=== PATIENT | female | born 1950 | race Caucasian/White ===

== ENCOUNTER → 2017-03-04 | Outpatient (CLI) | payer MEDICARE ==
[~2017-03-04] MED LIST: CANA300T PO; DIGO125T17 PO; INSU300I SQ; LATA2.5D7 BOTH EYES; LEVO100T82 PO; LOSA100T44 PO; METF750T2 PO; SUCR1TAB PO; TRAM50TA4 PO; [UNRECOGNIZED DRUG - CODE] PO
== END ==
LOC: NWCC 15:00
PROVIDERS: ATTEND Internal Medicine
DX: E11.621 Type 2 diabetes mellitus with foot ulcer (principal); L97.412 Non-pressure chronic ulcer of right heel and midfoot with fat layer exposed; L97.522 Non-pressure chronic ulcer of other part of left foot with fat layer exposed; Z86.73 Personal history of transient ischemic attack (TIA), and cerebral infarction without residual deficits; I49.9 Cardiac arrhythmia, unspecified; I10 Essential (primary) hypertension; J45.909 Unspecified asthma, uncomplicated; J44.9 Chronic obstructive pulmonary disease, unspecified; E03.9 Hypothyroidism, unspecified; E11.40 Type 2 diabetes mellitus with diabetic neuropathy, unspecified
CPT/HCPCS: 97597; A6021; A6209; A6212; G0463

== ENCOUNTER 2018-02-17 14:39 | Inpatient (IN) ==
--- NOTE | 2018-02-17 14:53 | Emergency Department Report ---
General Adult HPI - General Stated complaint: Lightheaded, blurry vision, nauseated Time Seen by Provider: 02/17/18 14:52 - Related Data Home Medications Medication Instructions Recorded Confirmed Levothyroxine Sodium [Levoxyl] 100 mcg PO ACB #0 11/05/09 02/17/18 Metformin XR [Glucophage Xr] 750 mg PO BID #0 03/22/16 02/17/18 Insulin Degludec *U100* [Tresiba 110 mg SQ HS 05/03/17 02/17/18 Flextouch U-100 Pen] Naproxen Sodium [Aleve] 220 mg PO BIDWM PRN 05/03/17 02/17/18 [place]-3 Fatty Acids/Fish Oil [Fish 1 cap PO BID 05/03/17 02/17/18 Oil 1,200 mg Softgel] Digoxin [Digoxin] 125 mcg PO DAILY 02/17/18 02/17/18 Losartan [Cozaar] 100 mg PO DAILY 02/17/18 02/17/18 Zinc Gluconate [Zinc] 50 mg PO BID 02/17/18 02/17/18 Allergies Allergy/AdvReac Type Severity Reaction Status Date / Time codeine Allergy Intermediate HIVES Verified 02/17/18 15:20 Iodinated Contrast- Oral and Allergy Intermediate HIVES Verified 02/17/18 15:20 IV Dye Penicillins Allergy Intermediate HIVES Verified 02/17/18 15:20 quinine Allergy Intermediate HIVES Verified 02/17/18 15:20 Sulfa (Sulfonamide Allergy Intermediate HIVES Verified 02/17/18 15:20 Antibiotics) morphine Allergy Mild rash Verified 02/17/18 15:20 acetaminophen [From Lortab] Allergy Unknown Verified 02/17/18 15:20 aspirin Allergy Unknown HAS HAD OD Verified 02/17/18 15:20 OF IT clarithromycin Allergy Unknown Verified 02/17/18 15:20 epinephrine Allergy Unknown HIVES Verified 02/17/18 15:20 oxaprozin Allergy Unknown Verified 02/17/18 15:20 hydrocodone AdvReac Mild Nausea and Verified 02/17/18 15:20 Vomiting ketoprofen AdvReac Mild N/V Verified 02/17/18 15:20 PFSH Patient Stated Medical History Cerebrovascular Accident Yes: >10 YEARS AGO Valvular Heart Disease Yes Asthma Yes Bronchitis Yes Diabetes Mellitus Type 2 Yes Depression Yes - Social History Smoking status: Never smoker Substance use type: does not use Alcohol intake frequency: does not drink Course Vital Signs Temperature 97.6 F 02/17/18 14:39 Pulse Rate 93 02/17/18 14:39 Respiratory Rate 13 02/17/18 14:39 Blood Pressure 117/57 02/17/18 14:39 Pulse Oximetry 94 02/17/18 14:39 Temperature 97.6 F 02/17/18 14:39 Pulse Rate 93 02/17/18 14:39 Respiratory Rate 13 02/17/18 14:39 Blood Pressure 117/57 02/17/18 14:39 Pulse Oximetry 94 02/17/18 14:39 Medical Decision Making - Lab Data Result diagrams: 02/17/18 15:11 02/17/18 15:11 Lab Results 02/17/18 02/17/18 02/17/18 Range/Units 14:48 15:11 15:11 WBC 11.2 H (4.5-11.0) T/MM3 RBC 4.24 (4.00-5.20) M/MM3 Hgb 13.9 (12-16) GM/DL Hct 41.5 (36-46) % MCV 97.9 (80-100) UM3 MCH 32.8 (26-34) UUG MCHC 33.5 (31-37) GM/DL RDW Std Deviation 48.5 (36.9-50.2) FL Plt Count 221 (130-400) T/MM3 MPV 11.1 (9.4-12.4) UM3 Immature Gran % (Auto) 0.4 (0.0-0.5) % Neut % (Auto) 59.9 (33-66) % Lymph % (Auto) 30.2 (23-45) % [place] % (Auto) 7.5 (0-9.0) % Eos % (Auto) 1.5 (0-4) % Baso % (Auto) 0.5 (0-2) % Neut # (Auto) 6.7 (1.8-7.7) T/MM3 Lymph # (Auto) 3.4 (1-4.8) T/MM3 [place] # (Auto) 0.8 (0-0.8) T/MM3 Eos # (Auto) 0.2 (0-0.5) T/MM3 Baso # (Auto) 0.1 (0-0.2) T/MM3 Abs Immat Gran (auto) 0.04 H (0.00-0.03) T/MM3 Turbidity < 20 (0-20) Sodium 142 (134-144) MEQ/L Potassium 5.9 H (3.6-5) MEQ/L Chloride 106 (98-107) MEQ/L Carbon Dioxide 21 L (22-30) MEQ/L Anion Gap 15 (5-15) meq/L BUN 36.0 H (7-17) MG/DL Creatinine 1.6 H (0.7-1.2) mg/dL GFR Calculation 32 BUN/Creatinine Ratio 23 (6-26) RATIO Glucose 165 H (65-110) MG/DL Glucometer 156 (65-110) mg/dL Calculated Osmolality 285 H (261-280) MOSM/KG Calcium 10.2 (8.4-10.2) MG/DL Total Bilirubin 0.60 (0.20-1.30) MG/DL Icterus Index < 2 (0-7) AST 22 (14-36) U/L ALT 32 (1-35) U/L Alkaline Phosphatase 82 (38-126) U/L Troponin I < 0.012 (0-0.12) ng/ml Total Protein 7.9 (6.3-8.2) g/dL Albumin 4.9 (3.5-5.0) g/dL Globulin 3.0 (2.4-3.6) G/DL Albumin/Globulin Ratio 1.6 (1.1-2.2) RATIO Lipase 159 (23-300) U/L Specimen Hemolysis < 15 (0-25) Disposition Clinical Impression: Hyperkalemia, Volume depletion Disposition: 02 To OBS [facility] Condition: Stable Prescriptions: No Action Levothyroxine Sodium [Levoxyl] 100 mcg PO ACB #0 [place]-3 Fatty Acids/Fish Oil [Fish Oil 1,200 mg Softgel] 1 cap PO BID Naproxen Sodium [Aleve] 220 mg PO BIDWM PRN PRN Reason: Pain Digoxin [Digoxin] 125 mcg PO DAILY Metformin XR [Glucophage Xr] 750 mg PO BID #0 Insulin Degludec *U100* [Tresiba Flextouch U-100 Pen] 110 mg SQ HS Zinc Gluconate [Zinc] 50 mg PO BID Losartan [Cozaar] 100 mg PO DAILY Referrals: Nedich,Calixto L, DO [Primary Care Provider] - - Seen By: physician
[2018-02-17] MEDS ORDERED: ONDANSETRON 4 MG/2 ML INJECTION IVP ONE (15:17)
[2018-02-17] MEDS ORDERED: NS 1,000 ML IV ONE (15:17)
[2018-02-17] MEDS ORDERED: MECLIZINE 25 MG TABLET PO ONE (15:19)
--- NOTE | 2018-02-17 15:21 | CT Scan Report ---
EXAM: CT head/brain wo con HISTORY: history of stroke, blurry vision nausea headache COMPARISON: Comparison is made with the prior examination dated 09/10/2014. Contiguous axial images of the brain without intravenous contrast were performed. The current CT scan was performed using radiation dose-reduction techniques. The cortical sulci are well-maintained. The ventricles are midline and appear normal in size and configuration demonstrating no evidence of mass effect or midline shift. Normal gomez-white matter differentiation is seen and there is no evidence of acute intracranial hemorrhage or acute transcortical infarct. There is mild periventricular white matter hypoattenuation likely reflecting chronic microvascular changes. No extra-axial masses or fluid collections are identified. The visualized bony calvarium appears intact and the paranasal sinuses are clear. IMPRESSION: 1. No CT evidence of acute intracranial process. 2. Mild periventricular white matter chronic microvascular changes.. .
[2018-02-17] MEDS ORDERED: KETOROLAC 30 MG/ML INJECTION IVP ONE (15:22)
[2018-02-17] MEDS ORDERED: CALCIUM GLUCONATE 4.65 MEQ in NS 50 ML IV ONE (15:39)
[2018-02-17] MEDS ORDERED: SODIUM POLYSTYRENE SULFONATE 15 GM/60 ML BOTTLE PO ONE (15:40)
[2018-02-17] MEDS ORDERED: ORPHENADRINE 60 MG/2 ML INJECTION IVP ONE (16:03)
[2018-02-17] MEDS: 1/2 NS 1,000 ML IV SCH (16:45)
[2018-02-17] MEDS ORDERED: DEXTROSE 50% SYRINGE 50ml (1 AMP) IVP PRN (17:19)
[2018-02-17] MEDS ORDERED: GLUCOSE ORAL GEL 40% 37.5gm PO PRN (17:19)
[2018-02-17] MEDS ORDERED: ONDANSETRON 4 MG/2 ML INJECTION IVP PRN (17:19)
[2018-02-17 17:25] VITALS: BMI 30.4
[2018-02-17] MEDS ORDERED: ACETAMINOPHEN 500 MG TABLET PO PRN (17:26)
[2018-02-17] MEDS ORDERED: MECLIZINE 25 MG TABLET PO PRN (17:27)
--- NOTE | 2018-02-17 18:32 | History & Physical Report ---
History of Present Illness Date: 02/17/18 HPI: Ling Ayala is a 67 year old who had been feeling fine all day until suddenly this afternoon (02/17/18), while leaving a clinic with her son, she began to feel lightheaded, weak, near-syncopal, and nauseated, and felt like someone was stabbing her in the back b/c of severe spasms up and down her back and into her right leg (which were much worse than normal). Since then she developed spasms on the right side of her neck and has an occipital headache. She denies any new medications or changes in medications. She's had mild abdominal pain and has to watch what she eats b/c of hx of bowel resections but denies vomiting or bowel changes. She has been eating and drinking without any problems and usually drinks several glasses of water per day, though didn't drink as much as usual today. She denies any burning on urination, retention, frequency, or discoloration. She did note that she hasn't been urinating as frequently today. She denies chest pain or palpitations, SOA, or cough. She had a minor "flu-like " illness with runny nose and sore throat in November but that has resolved. She has b/l hand/feet diabetic neuropathy. She denies any trauma or falls lately. She has diabetes and her typical blood sugars are 150 or less. She presented to [facility] for evaluation of her near-syncope and pain. Her vitals were stable on arrival. WBC was minimally elevated at 11.2. Potassium was high at 5.9; and BUN and creatinine were also elevated at 36 and 1.6. Her baseline creatinine a year ago was 1.0. Digoxin level was 1.1. She was given Kayexalate 15 gm, 1L of NS, and calcium gluconate for hyperkalemia. She was also given meclizine for dizziness and Norflex for muscle spasms (which was ineffective). Dr. Alfonso was then contacted and Ling was admitted to observation status. Review of Systems All systems PM: 10-point ROS was reviewed, no additional remarkable complaints except - Constitutional Constitutional: Present: headache(s). Absent: fever(s), weight gain, [facility]: Present: requires corrective lenses. Absent: blurry vision, change in vision Balance: Present: as per HPI Nose: Absent: obstruction Mouth/Throat: Absent: sore throat - Cardiovascular Cardiovascular: Absent: chest pain, palpitations, syncope Vascular: Present: Raynaud's. Absent: pedal edema - Respiratory Respiratory: Absent: cough, dyspnea, dyspnea on exertion - Gastrointestinal Gastrointestinal: Present: abdominal pain, nausea. Absent: constipation, diarrhea, vomiting - Genitourinary Genitourinary: Absent: dysuria, urinary frequency, urinary hesitancy, urinary urgency - Musculoskeletal Musculoskeletal: Present: back pain, neck pain - Integumentary/Breasts Integumentary: Absent: rash, wounds - Neurological Neurological: Present: dizziness, headache(s), numbness (diabetic neuropathy). Absent: abnormal gait, confusion, frequent falls - Psychiatric Psychiatric: Present: depression. Absent: abnormal sleep pattern - Endocrine Endocrine: Absent: palpitations - Hematologic/Lymphatic Hematologic/Lymphatic: Present: easy bleeding, easy bruising Past Medical History Medical History Updates: Type 2 DM with peripheral neuropathy. Hypothyroidism. Stroke without residual deficits in 1996. Raynoud's. PAF that was converted to NSR with cardioversion. GERD/Peptic ulcer disease. Obesity. Osteoarthritis Surgical History: Neck surgery x2. Bowel resection x2 - first one resulted from a large hernia; second bowel resection came as she was recovering from the first sx after hernia "ruptured". Appendectomy. T&A. TAHBSO. Back surgery. Cholecystectomy by Dr. Davila in 2003. Colonoscopy by Dr. Davila in 2003: polyp. EGD by Dr. Davila in 2007: normal. EGD by Dr. Espinal in 2010: gastritis and reflux. Heart cath by Dr. Murillo in 2010 which was normal. B/L total knee replacements, most recent being right in 2012. Relsease of Right IT band in 2013. ORIF left thumb/wrist 2014 Family History Updates: Mom at age 67. She had metastic melanoma. Father at age 82 of CHF. 3 sisters: 2 older, 1 younger. 2 older sisters are fairly healthy. Younger sister had thyroid cancer but is currently doing well. Son: HIV. Son: , psych problems, depression, drug abuse Family History: As Above - Social History Smoking status: Former smoker (quit in 1998) Packs per day: 0.25 Packs-years: 3 Substance use type: does not use Alcohol intake frequency: holidays/special occasions only Household members: other () Medications Home Medications Medication Instructions Recorded Confirmed Type Levothyroxine Sodium [Levoxyl] 100 mcg PO ACB #0 11/05/09 02/17/18 History Metformin XR [Glucophage Xr] 750 mg PO BID #0 03/22/16 02/17/18 History Insulin Degludec *U100* [Tresiba 110 mg SQ HS 05/03/17 02/17/18 History Flextouch U-100 Pen] Naproxen Sodium [Aleve] 220 mg PO BIDWM PRN 05/03/17 02/17/18 History [place]-3 Fatty Acids/Fish Oil [Fish 1 cap PO BID 05/03/17 02/17/18 History Oil 1,200 mg Softgel] Digoxin [Digoxin] 125 mcg PO DAILY 02/17/18 02/17/18 History Losartan [Cozaar] 100 mg PO DAILY 02/17/18 02/17/18 History Zinc Gluconate [Zinc] 50 mg PO BID 02/17/18 02/17/18 History Allergies Allergy/AdvReac Type Severity Reaction Status Date / Time codeine Allergy Intermediate HIVES Verified 02/17/18 15:20 Iodinated Contrast- Oral and Allergy Intermediate HIVES Verified 02/17/18 15:20 IV Dye Penicillins Allergy Intermediate HIVES Verified 02/17/18 15:20 quinine Allergy Intermediate HIVES Verified 02/17/18 15:20 Sulfa (Sulfonamide Allergy Intermediate HIVES Verified 02/17/18 15:20 Antibiotics) morphine Allergy Mild rash Verified 02/17/18 15:20 acetaminophen [From Lortab] Allergy Unknown Verified 02/17/18 15:20 aspirin Allergy Unknown HAS HAD OD Verified 02/17/18 15:20 OF IT clarithromycin Allergy Unknown Verified 02/17/18 15:20 epinephrine Allergy Unknown HIVES Verified 02/17/18 15:20 oxaprozin Allergy Unknown Verified 02/17/18 15:20 hydrocodone AdvReac Mild Nausea and Verified 02/17/18 15:20 Vomiting ketoprofen AdvReac Mild N/V Verified 02/17/18 15:20 Exam Vital Signs: Temperature 97.6 F 02/17/18 14:39 Pulse Rate 74 02/17/18 17:00 Respiratory Rate 21 02/17/18 17:00 Blood Pressure 149/70 H 02/17/18 17:00 Pulse Oximetry 97 02/17/18 17:00 Height/Weight/BMI: Height 1.68 m Weight 85.7 kg Body Mass Index 30.4 - Constitutional Present: no acute distress, well nourished, well developed - Routine HEENT Exam Head: Present: normocephalic Eye: Present: PERRL. Absent: conjunctival icterus, scleral injection ENT: Present: mucous membranes moist - Routine Neck Exam Present: supple. Absent: lymphadenopathy - Routine Respiratory Exam Present: CTA bilaterally - Routine Cardiovascular Exam Present: RRR, S1, S2 - Routine Abdominal Exam Present: soft, tenderness (with guarding to L periumbilical region), non distended. Absent: normoactive bowel sounds (hyperactive) - Routine Extremities Exam Present: no edema, pulses intact, normal capillary refill - Routine Back/Spine/Pelvis Exam Back/Spine: Present: muscle spasm (left trapezius). Absent: full ROM (even slight movement in bed reproduces spasms) - Routine Skin Exam Present: intact, dry, warm Comments: skin on left hand is cool - hx of Raynaud's - Routine Neurological Exam Present: alert, oriented X3, CN II-XII intact, sensory deficit (b/l feet d/t neuropathy), moving all extremities, normal speech Results - Labs CBC & Chem 7: 02/17/18 15:11 02/17/18 15:11 - ECG Data Tracing #1 I reviewed this ECG and interpreted as documented below: NSR, no ST elevation/depression, No T wave peaking - Imaging and Cardiology CT scan - head Status: image reviewed by me Additional comments: Date of Exam: 02/17/18 EXAM: CT head/brain wo con The cortical sulci are well-maintained. The ventricles are midline and appear normal in size and configuration demonstrating no evidence of mass effect or midline shift. Normal gomez-white matter differentiation is seen and there is no evidence of acute intracranial hemorrhage or acute transcortical infarct. There is mild periventricular white matter hypoattenuation likely reflecting chronic microvascular changes. No extra-axial masses or fluid collections are identified. The visualized bony calvarium appears intact and the paranasal sinuses are clear. IMPRESSION: 1. No CT evidence of acute intracranial process. 2. Mild periventricular white matter chronic microvascular changes.. Assessment and Plan Assessment and Plan: ASSESSMENT Hyperkalemia POA IFRAH POA Mild leukocytosis POA Type 2 DM with peripheral neuropathy Hypothyroidism Stroke without residual deficits in 1996 Raynoud's PAF that was converted to NSR with cardioversion GERD/Peptic ulcer disease Obesity Osteoarthritis PLAN Admit, observation status. PCP: Dr. Tesfaye. Advanced care directives: Wishes to name son as DPOA per previous discussions with him: will facilitate that tomorrow. Full code Hyperkalemia (5.9) & IFRAH (1.6, baseline 1.0) Received calcium gluconate, Kayexelate, and 1L NS in ED Continue with 1/2 NS Hold metformin, Cozaar, Aleve Monitor on tele Recheck BMP in am Check UA and postvoid residual Lightheadedness IVF as above R/O infection Control pain: Tramadol and Norflex PRN If sx persist may consult PT DM2 Monitor blood sugars Adjust insulin as needed, SSI Leukocytosis UA pending Recheck in am DVT Prophylaxis: SCD's GI Prophylaxis: Protonix Resuscitation Status: Full Code - Physician Narrative Physician: Yaya Alfonso MD Narrative: Date: 02/17/18 Time: 1954 Have independently interviewed and examined pt. Chart reviewed. Case discussed with ED physician and my DRY BOSS. Care plan developed with my supervision; agree with above. Started feeling rough today-very weak, lightheaded, and having spasms/cramps to leg and back of head. In typical state of kristin until these symptoms onset. Eating and drinking well. Bowels stable. Breathing well. No recent injury to trauma. Evaluated in ED. Potassium elevated at 5.9 and creatinine increase to 1.6. Placed in OBS for IVF for treatment of hyperkalemia and elevated creatinine. Lungs: clear CV: regular AB: soft nt BS Present EXT: no edema MSE: awake alert Plan: OBS. IVF of 1/2NS. Hold Cozaar and NSAIDS. Zofran prn nausea. ICE/Heat/ Aspercreme prn neck pain. Monitor sugars. Monitor lab. Hospital Course Summary Disclaimer: The visit summary below is not to be considered part of the above Progress Note. Hospital Course: 02/17/18 Admit, observation status. PCP: Dr. Tesfaye. Advanced care directives: Wishes to name son as DPOA per previous discussions with him: will facilitate that tomorrow. Full code Hyperkalemia (5.9) & IFRAH (1.6, baseline 1.0) Received calcium gluconate, Kayexelate, and 1L NS in ED Continue with 1/2 NS Hold metformin, Cozaar, Aleve Monitor on tele Recheck BMP in am Check UA and postvoid residual Lightheadedness IVF as above R/O infection Control pain: Tramadol and Norflex PRN If sx persist may consult PT DM2 Monitor blood sugars Adjust insulin as needed, SSI Leukocytosis UA pending Recheck in am
[2018-02-17] MEDS: TRAMADOL 50 MG TABLET PO PRN (19:18)
[2018-02-17] MEDS: ORPHENADRINE SR 100 MG TABLET PO PRN (22:22)
[2018-02-18] MEDS: TRAMADOL 50 MG TABLET PO PRN ×4 (00:11→21:48)
[2018-02-18] MEDS ORDERED: KETOROLAC 15 MG/ML INJECTION IVP ONE (01:32)
[2018-02-18] MEDS: 1/2 NS 1,000 ML IV SCH ×3 (01:44→16:58)
[2018-02-18] MEDS: LEVOTHYROXINE 100 MCG PO SCH (06:26)
[2018-02-18] MEDS: DIGOXIN 125 MCG PO SCH (08:58)
[2018-02-18] MEDS ORDERED: FUROSEMIDE 40 MG/4 ML INJECTION IVP ONE (09:14)
[2018-02-18] MEDS: ORPHENADRINE SR 100 MG TABLET PO PRN (10:44)
--- NOTE | 2018-02-18 11:25 | Progress Note ---
- Date 02/18/18 Subjective: Ling is feeling miserable. She still has right neck spasms and back spasms. She was only able to sleep a few hours last night b/c of her spasms. She denies other c/o such as chest pain or dyspnea. Her abdomen isn't bothering her today. She denies nausea or vomiting but doesn't have much of an appetite this am. She and her son discussed advanced directives last night - she requests DNR and we will fill out DPOA form this afternoon. Declined PT eval. Objective Vital signs: Temperature 97.5 F 02/17/18 23:38 Pulse Rate 67 02/18/18 08:58 Respiratory Rate 18 02/18/18 07:00 Blood Pressure 138/70 02/18/18 07:00 Pulse Oximetry 93 02/18/18 07:00 Height/Weight/BMI: Height 1.68 m Weight 85.7 kg Body Mass Index 30.4 - Constitutional Present: mild distress, well nourished, well developed - Routine HEENT Exam Head: Present: normocephalic Eye: Present: PERRL. Absent: conjunctival icterus, scleral injection ENT: Present: oropharynx clear - Routine Respiratory Exam Present: CTA bilaterally - Routine Cardiovascular Exam Present: RRR, S1, S2 - Routine Abdominal Exam Present: soft, normoactive bowel sounds, non distended, non tender - Routine Extremities Exam Present: no edema, pulses intact - Routine Back/Spine/Pelvis Exam Back/Spine: Present: muscle spasm (right trapezius. Slight movement of arm/ torso causes pain.). Absent: full ROM - Routine Musculoskeletal Exam Musculoskeletal: Present: no clubbing or cyanosis - Routine Skin Exam Present: intact, dry, warm - Routine Neurological Exam Present: alert, oriented X3, normal speech - Routine Psychiatric Exam Present: normal affect, normal thought process, cooperative Results - Labs CBC & Chem 7: 02/18/18 04:25 02/18/18 14:27 Assessment and Plan Assessment and Plan: ASSESSMENT Hyperkalemia POA IFRAH POA - resolved Mild leukocytosis POA - resolved Type 2 DM with peripheral neuropathy Hypothyroidism Stroke without residual deficits in 1996 Raynoud's PAF that was converted to NSR with cardioversion GERD/Peptic ulcer disease Obesity Osteoarthritis PLAN Hyperkalemia (5.9) & IFRAH (1.6, baseline 1.0) K improved to 5.5 and cr 1.2 Continue with 1/2 NS & give Lasix 40 mg IV x1 Hold metformin, Cozaar, Aleve UA neg Postvoid residual - 82 ml Lightheadedness IVF as above R/O infection Control pain: Tramadol and Norflex PRN If sx persist may consult PT DM2 : Stable Muscle spasms : Norflex ineffective. Try low-dose Valium and heating pad. Discharge plan Possible home later today if K continues to improve DVT Prophylaxis: SCD's - Time spent with patient Time with patient PN: 25 minutes - Physician Narrative Physician: Yaya Alfonso MD Narrative: Date: 02/18/18 Time: 1534 Have independently interviewed and examined pt. Chart reviewed. Case discussed with CM and my [employer]. Care plan developed with my supervision; agree with above. Still having significant pain/spasm to neck and right shoulder. Hard to move right arm due to shoulder pain. Shoulder tender to touch. Legs feel weak and spastic. Hard to move around. Diazepam really did not help her pain/spasms. Heat and Aspercreme helping to ease pain, but has not resolved her symptoms. No ab pain or nausea; appetite feels decreased. Did have stool today. Urinating well - significant output post Lasix. Breathing well - not feeling SOA or congested. No pain with breathing. Lungs: clear bilaterally, no distress on RA. CV: regular AB: soft nt BS decreased MS: point tender to R shoulder-no swelling. Trapezium muscle feels tense. Lab: Recheck BMP this afternoon showing decrease of potassium to 5.1 with creatinine decreasing to 1.1. Plan: Consult with PT/OT to help with stretching modalities and ROM activities to help pain/spasm. Potassium/creatinine improving - continue to hold Cozaar. Will decrease IVF to 100 cc/hr. Improving from a physiological status ( Creatinine/Potassium) but patient not feeling functional status up to discharge. Will hold on discharge plans today. Continue supportive care. Hospital Course Summary Disclaimer: The visit summary below is not to be considered part of the above Progress Note. Hospital Course: 02/17/18 : Admit, observation status. PCP: Dr. Tesfaye. Hyperkalemia (5.9) & IFRAH (1.6, baseline 1.0) : Received calcium gluconate, Kayexelate, and 1L NS in ED. IVF: 1/2 NS. Hold metformin, Cozaar, Aleve. Monitor on tele Lightheadedness : IVF, control pain. DM2 : Monitor blood sugars. Adjust insulin as needed, SSI Leukocytosis : UA pending 02/18/18 Hyperkalemia/IFRAH : K improved to 5.5 and cr 1.2. Continue with 1/2 NS & give Lasix 40 mg IV x1. UA neg. Postvoid residual = 82 ml Leukocytosis : resolved Muscle spasms : Norflex ineffective. Try low-dose Valium and heating pad.
[2018-02-18] MEDS: DIAZEPAM 2 MG TABLET PO PRN (11:36)
[2018-02-18] MEDS: INSULIN DEGLUDEC U PO SCH ×2 (16:57→21:49)
[2018-02-18] MEDS: [UNRECOGNIZED DRUG - OTHER] PO SCH ×2 (16:57→21:49)
--- NOTE | 2018-02-18 19:00 | Palliative Care Report ---
History of Present Illness Date: 02/18/18 Current Medical Condition: Diagnoses: Type 2 DM with peripheral neuropathy Hypothyroidism Stroke without residual deficits in 1996 Raynaud's PAF that was converted to NSR with cardioversion GERD/Peptic ulcer disease Treatment: Despite medical and procedural management, her chronic illnesses continue to progress. She was hospitalized for an acute kidney injury and hyperkalemia on 09/26 which responded well to IV fluids and diuretics. Her son recently was seriously ill, and he completed his advanced care directives. This hospitalization has reminded her that she needs to consider her own advanced care directives given her progressive chronic conditions. Past Medical History Medical History Updates: Type 2 DM with peripheral neuropathy. Hypothyroidism. Stroke without residual deficits in 1996. Raynoud's. PAF that was converted to NSR with cardioversion. GERD/Peptic ulcer disease. Obesity. Osteoarthritis Surgical History: Neck surgery x2. Bowel resection x2 - first one resulted from a large hernia; second bowel resection came as she was recovering from the first sx after hernia "ruptured". Appendectomy. T&A. TAHBSO. Back surgery. Cholecystectomy by Dr. Davila in 2003. Colonoscopy by Dr. Davila in 2003: polyp. EGD by Dr. Davila in 2007: normal. EGD by Dr. Espinal in 2010: gastritis and reflux. Heart cath by Dr. Murillo in 2010 which was normal. B/L total knee replacements, most recent being right in 2012. Relsease of Right IT band in 2013. ORIF left thumb/wrist 2014 Family History: Mom at age 67. She had metastatic melanoma. Father at age 82 of CHF. 3 sisters: 2 older, 1 younger. 2 older sisters are fairly healthy. Younger sister had thyroid cancer but is currently doing well. Son: HIV. Son: , psych problems, depression, drug abuse - Social History Smoking status: Former smoker (quit in 1998) Packs per day: 0.25 Packs-years: 3 Substance use type: does not use Alcohol intake frequency: holidays/special occasions only Household members: other () Current occupational status: employed Current occupation: [employer] - Cultural and Spiritual Medications Home Medications Medication Instructions Recorded Confirmed Type Levothyroxine Sodium [Levoxyl] 100 mcg PO ACB #0 11/05/09 02/17/18 History Metformin XR [Glucophage Xr] 750 mg PO BID #0 03/22/16 02/17/18 History Insulin Degludec *U100* [Tresiba 110 mg SQ HS 05/03/17 02/17/18 History Flextouch U-100 Pen] Naproxen Sodium [Aleve] 220 mg PO BIDWM PRN 05/03/17 02/17/18 History [place]-3 Fatty Acids/Fish Oil [Fish 1 cap PO BID 05/03/17 02/17/18 History Oil 1,200 mg Softgel] Digoxin [Digoxin] 125 mcg PO DAILY 02/17/18 02/17/18 History Losartan [Cozaar] 100 mg PO DAILY 02/17/18 02/17/18 History Zinc Gluconate [Zinc] 50 mg PO BID 02/17/18 02/17/18 History Allergies Allergy/AdvReac Type Severity Reaction Status Date / Time codeine Allergy Intermediate HIVES Verified 02/17/18 15:20 Iodinated Contrast- Oral and Allergy Intermediate HIVES Verified 02/17/18 15:20 IV Dye Penicillins Allergy Intermediate HIVES Verified 02/17/18 15:20 quinine Allergy Intermediate HIVES Verified 02/17/18 15:20 Sulfa (Sulfonamide Allergy Intermediate HIVES Verified 02/17/18 15:20 Antibiotics) morphine Allergy Mild rash Verified 02/17/18 15:20 acetaminophen [From Lortab] Allergy Unknown Verified 02/17/18 15:20 aspirin Allergy Unknown HAS HAD OD Verified 02/17/18 15:20 OF IT clarithromycin Allergy Unknown Verified 02/17/18 15:20 epinephrine Allergy Unknown HIVES Verified 02/17/18 15:20 oxaprozin Allergy Unknown Verified 02/17/18 15:20 hydrocodone AdvReac Mild Nausea and Verified 02/17/18 15:20 Vomiting ketoprofen AdvReac Mild N/V Verified 02/17/18 15:20 Exam Vital Signs: Temperature 97.8 F 02/18/18 16:01 Pulse Rate 72 02/18/18 16:01 Respiratory Rate 18 02/18/18 07:00 Blood Pressure 120/60 02/18/18 16:01 Pulse Oximetry 93 02/18/18 16:01 - Laboratory CBC & Chem 7: 02/18/18 04:25 02/18/18 14:27 Planning/Recommendations - Assessment and Recommendations Cultural Practices: Scientology 02/18/18 19:04 Continue with medical management including tramadol and nonpharmacologic options. - Advance Care Planning Resuscitation Status: Full Code (We discussed CODE STATUS in detail, and at this time she would want an attempt be made, but if her recovery would be prolonged without reasonable hope of recovery, and especially cognitive recovery , she would not want to continue living.) Living Will: Yes (completed today) DPOA For Healthcare Only: Yes (completed today, named Jacinto Ayala) Patient and family perception /understanding of illness: We had a 35 minute discussion with Ling and her son, Jacinto, who is named as her DPOA. They have a realistic outlook on disease progression. We discussed CODE STATUS in detail, and at this time she would want an attempt be made, but if her recovery would be prolonged without reasonable hope of recovery, and especially cognitive recovery, she would not want to continue living. Goals of treatment: We had a 35 minute discussion regarding Advanced Care Directives. At this point, her prognosis is good and her goals are to be able to return home and return to work. If she becomes debilitated from her chronic diseases, her preference would be to stay at home for as long as possible, and to at home if possible. Fears and Worries: If she is no longer able to recognize and interact with family and friends, life would be not worth living. She also does not want to be a burden on her family and caregivers. If she gets to the point where she is unable to care for herself and requires full [id number] care, she gives them permission to hire a full-time caregiver or be admitted to a long-term care facility. Strengths: Quality of life for her is defined by the ability to linsey and watch TV, and spend quality time with her loved ones.
[2018-02-18] MEDS: INSULIN ASPART 100unit/ml INJECTION SQ PRN (21:47)
[2018-02-19] MEDS: ORPHENADRINE SR 100 MG TABLET PO PRN (00:37)
[2018-02-19] MEDS: TRAMADOL 50 MG TABLET PO PRN ×4 (03:47→20:30)
[2018-02-19] MEDS: 1/2 NS 1,000 ML IV SCH (03:47)
[2018-02-19] MEDS: LEVOTHYROXINE 100 MCG PO SCH (06:15)
[2018-02-19] MEDS: DIGOXIN 125 MCG PO SCH (08:15)
[2018-02-19] MEDS ORDERED: FUROSEMIDE 20 MG/2 ML INJECTION IVP ONE (08:29)
[2018-02-19] MEDS: SALINE FLUSH 10ml SYRINGE IVF PRN ×4 (09:29→17:21)
--- NOTE | 2018-02-19 10:34 | Progress Note ---
- Date 02/19/18 Subjective: Ling rested much better last night. Between the heating pad and Aspercreme, she's able to get a couple hours of sleep at a time. She is moving better, but her right arm is still limited d/t pain. She states that PT thought she might have a pinched nerve. Her arm feels weak b/c of pain. Her coordination is unaffected but she has chronic numbness in her hand b/c diabetes. She still has an occipital headache which worsens when she has to hold her head up -- it feels better when she can rest her head on a pillow and rest her neck muscles. She's walking better, and only feels slightly lightheaded with ambulation. She denies SOA. She denies abdominal pain or nausea and her bowels are moving. Objective Vital signs: Temperature 97 F 02/19/18 08:00 Pulse Rate 68 02/19/18 08:15 Respiratory Rate 16 02/19/18 08:00 Blood Pressure 122/68 02/19/18 08:00 Pulse Oximetry 93 02/19/18 08:00 Height/Weight/BMI: Weight 85.6 kg - Constitutional Present: no acute distress, well nourished, well developed - Routine HEENT Exam Head: Present: normocephalic Eye: Present: EOMI, PERRL. Absent: conjunctival icterus, scleral injection - Routine Respiratory Exam Present: CTA bilaterally - Routine Cardiovascular Exam Present: RRR, S1, S2 - Routine Abdominal Exam Present: soft, normoactive bowel sounds, non distended, non tender - Routine Extremities Exam Present: no edema, pulses intact - Routine Back/Spine/Pelvis Exam Back/Spine: Present: muscle spasm (right trapezius) - Routine Musculoskeletal Exam Musculoskeletal: Absent: moving extremities well (right shoulder ROM improving but still painful) - Routine Skin Exam Present: intact, dry, warm - Routine Neurological Exam Present: alert, oriented X3, CN II-XII intact, motor deficit (right arm limited by pain), moving all extremities, vision grossly intact, hearing grossly intact , normal speech. Absent: altered mental status, facial asymmetry - Routine Psychiatric Exam Present: normal affect, normal thought process, cooperative Results - Labs CBC & Chem 7: 02/18/18 04:25 02/19/18 05:16 Assessment and Plan Assessment and Plan: ASSESSMENT Hyperkalemia POA IFRAH POA - resolved Mild leukocytosis POA - resolved Type 2 DM with peripheral neuropathy Hypothyroidism Stroke without residual deficits in 1996 Raynoud's PAF that was converted to NSR with cardioversion GERD/Peptic ulcer disease Obesity Osteoarthritis Pain/muscle spasms right shoulder and arm PLAN Hyperkalemia (5.9) & IFRAH (1.6, baseline 1.0) K improved to 5.3 and cr 0.9 DC 1/2 NS & give Lasix 20 mg IV x1 Hold metformin, Cozaar, Aleve Lightheadedness Improving MR brain Muscle spasms with right arm pain/limited mobility : MR brain and neck May need outpatient PT/OT F/U with Dr. Stephens DVT Prophylaxis: SCD's Resuscitation Status: Full Code - Physician Narrative Physician: Karley Pinon MD Narrative: Date: 02/19/18 Time: 2039 I have independently evaluated and examined this patient. I reviewed the chart, the patient's history, and the THEATRE PROFESSOR/PA's documented findings as above. We discussed and formulated the assessment and plan as above with additions as below: Mrs. Ayala describes ongoing pain in her right shoulder with pain extending into the arm to nearly the rest, this is not radicular and involves the entire arm on all surfaces. There is some tingling present. She is unable to raise her right arm and could not hold a spoon and fork this evening. Pain is about the same or slightly worse today than she recalls it being yesterday. There is marked tenderness to palpation over the right rotator cuff and along the right bicipital tendon; no erythema or warmth present Patient was able to actively raise her right arm about 20 off the bed; passively with slow movement I could anteriorly flex the arm to just under 90 and could abduct to 90 with the elbow flexed. Sensation appears to be in touch to light touch in the arm. MRI of the brain and MRI of the cervical spine reviewed by myself-revealing no acute brain pathology although small vessel changes present; no spinal stenosis (although radiology read minor spinal canal narrowing at C6 and C7), no neural foraminal narrowing. Consider orthopedic evaluation of the shoulder if symptoms do not improve with conservative management. Patient has not been using muscle relaxant as ordered-will schedule; few options for oral pain control but will [id number] can try oral Dilaudid. Hospital Course Summary Disclaimer: The visit summary below is not to be considered part of the above Progress Note. Hospital Course: 02/17/18 : Admit, observation status. PCP: Dr. Tesfaye. Hyperkalemia (5.9) & IFRAH (1.6, baseline 1.0) : Received calcium gluconate, Kayexelate, and 1L NS in ED. IVF: 1/2 NS. Hold metformin, Cozaar, Aleve. Monitor on tele Lightheadedness : IVF, control pain. DM2 : Monitor blood sugars. Adjust insulin as needed, SSI Leukocytosis : UA pending 02/18/18 Hyperkalemia/IFRAH : K improved to 5.5 and cr 1.2. Continue with 1/2 NS & give Lasix 40 mg IV x1. UA neg. Postvoid residual = 82 ml Leukocytosis : resolved Muscle spasms : Norflex ineffective. Try low-dose Valium and heating pad. 02/19/18 Hyperkalemia : K improved to 5.3 and cr 0.9. DC 1/2 NS & give Lasix 20 mg IV x1. Holding metformin, Cozaar, Aleve Lightheadedness : Improving. MR brain Muscle spasms with right arm pain/limited mobility : MR neck. May need outpatient PT/OT. F/U with Dr. Stephens
[2018-02-19] MEDS: DIAZEPAM 2 MG TABLET PO PRN (10:56)
[2018-02-19] MEDS ORDERED: SALINE FLUSH 10ml SYRINGE ONE (12:15)
--- NOTE | 2018-02-19 12:52 | Magnetic Resonance Report ---
Indication: right arm weakness MR head/brain wo con: Comparison: CT head 02/17/2018 Technique: T1 and T2-weighted image sequences provided Findings: Patient demonstrates no acute intracranial abnormality to support recent vascular insult. Diffusion weighted images show no support for recent vascular insult. Heavier T2-weighted image sequences showed multiple small vessel changes which would seem to be consistent with the recent CT study. No hemorrhage, midline shift or mass effect is identified. Visualized sinuses showed mild ethmoid mucoperiosteal thickening greater on the left. Impression: Findings seem to agree with recent CT study with mild diffuse deep white matter changes but, no suggestion of recent hemorrhage or vascular insult identified. .
[2018-02-19] MEDS: INSULIN ASPART 100unit/ml INJECTION SQ PRN ×2 (13:03→20:00)
--- NOTE | 2018-02-19 13:47 | Magnetic Resonance Report ---
Indication: right arm weakness and pain MR cervical spine wo/w con: Comparison: CT cervical spine 04/06/2015 Technique: T1 and T2-weighted image sequence in longitudinal maxilla image planes with additional contrast enhanced studies after 17 cc of ProHance is administered intravenously. Findings: Patient shows postoperative changes of anterior fusion from C5 through C7. No marked change in the alignment is seen since the previous study. Patient shows no focal cord lesions. Vertebral body heights and alignments are unremarkable. Axial imaging Patient shows mild spinal canal narrowing at the C6 level. Some mild narrowing at C7. No focal abnormal bony signals are seen. Patient shows postcontrast images that failed to show any abnormal enhancing masses. Impression: 1. Postoperative changes from C5 through C7 without marked change since an old study regards to alignment and positioning. 2. Patient did show some mild canal narrowing at C56 and C6-7 levels although this did not cause marked stenosis nor is there significant neural foraminal narrowing. 3. No focal cord lesions or significant abnormal bony signal appreciated. .
[2018-02-19] MEDS ORDERED: METAXALONE 800 MG TABLET PO PRN (14:28)
[2018-02-19] MEDS ORDERED: FentaNYL 250 MCG/5 ML INJECTION IVP PRN (14:29)
[2018-02-19] MEDS: FentaNYL 100 MCG/2 ML INJECTION IVP PRN ×2 (15:15→17:20)
[2018-02-19] MEDS: INSULIN DEGLUDEC U PO SCH (20:37)
[2018-02-19] MEDS: [UNRECOGNIZED DRUG - OTHER] PO SCH (20:37)
[2018-02-19] MEDS ORDERED: Oxycodone *IR* 5 MG TABLET PO PRN (20:48)
[2018-02-19] MEDS: METAXALONE 800 MG TABLET PO SCH (21:16)
[2018-02-20] MEDS: FentaNYL 100 MCG/2 ML INJECTION IVP PRN ×4 (01:05→13:59)
[2018-02-20] MEDS: LEVOTHYROXINE 100 MCG PO SCH (05:59)
[2018-02-20] MEDS: METAXALONE 800 MG TABLET PO SCH ×2 (08:44→15:27)
[2018-02-20] MEDS: DIAZEPAM 2 MG TABLET PO PRN (08:44)
[2018-02-20] MEDS: DIGOXIN 125 MCG PO SCH (08:45)
[2018-02-20 08:47] VITALS: PULSE 100
[2018-02-20 08:48] VITALS: BP 109/79; RESP 18; TEMP 97.6; O2SAT 99
[2018-02-20] MEDS: TRAMADOL 50 MG TABLET PO PRN (08:55)
[2018-02-20] MEDS: SALINE FLUSH 10ml SYRINGE IVF PRN ×2 (08:57→13:59)
[2018-02-20] MEDS ORDERED: PredniSONE 20 MG TABLET PO SCH (11:54)
--- NOTE | 2018-02-20 12:03 | Discharge Summary ---
Discharge Information Date of admission: 02/18/18 18:33 Anticipated date of discharge: 02/20/18 Attending Physician: Yaya Alfonso MD Primary care physician: Calixto Tesfaye DO Discharge diagnosis Hyperkalemia POA - resolved IFRAH POA - resolved Associated conditions and complications Pain/muscle spasms right shoulder and arm Mild leukocytosis POA - resolved Type 2 DM with peripheral neuropathy Hypothyroidism Stroke without residual deficits in 1996 Raynaud's PAF that was converted to NSR with cardioversion GERD/Peptic ulcer disease Obesity Osteoarthritis - Laboratory Labs: Admission labs 02/17/18 02/17/18 15:11 15:11 WBC 11.2 H RBC 4.24 Hgb 13.9 Hct 41.5 Plt Count 221 Sodium 142 Potassium 5.9 H Chloride 106 Carbon Dioxide 21 L Anion Gap 15 BUN 36.0 H Glucose 165 H Calcium 10.2 Dismissal labs 02/20/18 04:14 Sodium 140 Potassium 4.6 Chloride 98 Carbon Dioxide 29 Anion Gap 13 BUN 19.0 H Creatinine 0.9 Glucose 132 H Calcium 9.9 D - Radiology Radiology: Date of Exam: 02/17/18 EXAM: CT head/brain wo con HISTORY: history of stroke, blurry vision nausea headache The cortical sulci are well-maintained. The ventricles are midline and appear normal in size and configuration demonstrating no evidence of mass effect or midline shift. Normal gomez-white matter differentiation is seen and there is no evidence of acute intracranial hemorrhage or acute transcortical infarct. There is mild periventricular white matter hypoattenuation likely reflecting chronic microvascular changes. No extra-axial masses or fluid collections are identified. The visualized bony calvarium appears intact and the paranasal sinuses are clear. IMPRESSION: 1. No CT evidence of acute intracranial process. 2. Mild periventricular white matter chronic microvascular changes. Date of Exam: 02/19/18 Indication: right arm weakness and pain MR cervical spine wo/w con: Findings: Patient shows postoperative changes of anterior fusion from C5 through C7. No marked change in the alignment is seen since the previous study. Patient shows no focal cord lesions. Vertebral body heights and alignments are unremarkable. Patient shows mild spinal canal narrowing at the C6 level. Some mild narrowing at C7. No focal abnormal bony signals are seen. Patient shows postcontrast images that failed to show any abnormal enhancing masses. Impression: 1. Postoperative changes from C5 through C7 without marked change since an old study regards to alignment and positioning. 2. Patient did show some mild canal narrowing at C56 and C6-7 levels although this did not cause marked stenosis nor is there significant neural foraminal narrowing. 3. No focal cord lesions or significant abnormal bony signal appreciated. Date of Exam: 02/19/18 Indication: right arm weakness MR head/brain wo con: Findings: Patient demonstrates no acute intracranial abnormality to support recent vascular insult. Diffusion weighted images show no support for recent vascular insult. Heavier T2-weighted image sequences showed multiple small vessel changes which would seem to be consistent with the recent CT study. No hemorrhage, midline shift or mass effect is identified. Visualized sinuses showed mild ethmoid mucoperiosteal thickening greater on the left. Impression: Findings seem to agree with recent CT study with mild diffuse deep white matter changes but, no suggestion of recent hemorrhage or vascular insult identified. History of Present Illness HPI: Ling Ayala is a 67 year old who had been feeling fine all day until suddenly this afternoon (02/17/18), while leaving a clinic with her son, she began to feel lightheaded, weak, near-syncopal, and nauseated, and felt like someone was stabbing her in the back b/c of severe spasms up and down her back and into her right leg (which were much worse than normal). Since then she developed spasms on the right side of her neck and has an occipital headache. She denies any new medications or changes in medications. She's had mild abdominal pain and has to watch what she eats b/c of hx of bowel resections but denies vomiting or bowel changes. She has been eating and drinking without any problems and usually drinks several glasses of water per day, though didn't drink as much as usual today. She denies any burning on urination, retention, frequency, or discoloration. She did note that she hasn't been urinating as frequently today. She denies chest pain or palpitations, SOA, or cough. She had a minor "flu-like " illness with runny nose and sore throat in November but that has resolved. She has b/l hand/feet diabetic neuropathy. She denies any trauma or falls lately. She has diabetes and her typical blood sugars are 150 or less. She presented to [facility] ED for evaluation of her near-syncope and pain. Her vitals were stable on arrival. WBC was minimally elevated at 11.2. Potassium was high at 5.9; and BUN and creatinine were also elevated at 36 and 1.6. Her baseline creatinine a year ago was 1.0. Digoxin level was 1.1. She was given Kayexalate 15 gm, 1L of NS, and calcium gluconate for hyperkalemia. She was also given meclizine for dizziness and Norflex for muscle spasms (which was ineffective). Dr. Alfonso was then contacted and Ling was admitted to observation status. Objective Vital signs: Temperature 97.6 F 02/20/18 08:00 Pulse Rate 100 02/20/18 08:45 Respiratory Rate 18 02/20/18 08:00 Blood Pressure 109/79 02/20/18 08:00 Pulse Oximetry 99 02/20/18 08:00 Height/Weight/BMI: Weight 83.3 kg - Constitutional Present: no acute distress, well nourished, well developed - Routine HEENT Exam Head: Present: normocephalic, atraumatic - Routine Respiratory Exam Present: CTA bilaterally. Absent: wheezes - Routine Cardiovascular Exam Present: RRR, no murmur - Routine Abdominal Exam Present: soft, non distended, non tender - Routine Extremities Exam Present: edema (trace), normal capillary refill Comments: Tender to palpation over the trapezius on the right. Limited ROM of R shoulder due to pain. No sensory deficits. - Routine Skin Exam Present: dry, warm - Routine Neurological Exam Present: alert, oriented X3 - Routine Lymphatic Exam Lymphatic: Absent: adenopathy - Routine Psychiatric Exam Present: normal affect, cooperative Hospital Course This is a general summary of the patient's hospital course. For more details refer to the complete medical record. Hospital course: 02/17/18 : Admit, observation status. PCP: Dr. Tesfaye. Hyperkalemia (5.9) & IFRAH (1.6, baseline 1.0) : Received calcium gluconate, Kayexelate, and 1L NS in ED. IVF: 1/2 NS. Hold metformin, Cozaar, Aleve. Monitor on tele Lightheadedness : IVF, control pain. DM2 : Monitor blood sugars. Adjust insulin as needed, SSI Leukocytosis : UA pending 02/18/18 Hyperkalemia/IFRAH : K improved to 5.5 and cr 1.2. Continue with 1/2 NS & give Lasix 40 mg IV x1. UA neg. Postvoid residual = 82 ml Leukocytosis : resolved Muscle spasms : Norflex ineffective. Try low-dose Valium and heating pad. 02/19/18 Hyperkalemia : K improved to 5.3 and cr 0.9. DC 1/2 NS & give Lasix 20 mg IV x1. Holding metformin, Cozaar, Aleve Lightheadedness : Improving. MR brain Muscle spasms with right arm pain/limited mobility : MR neck. May need outpatient PT/OT. F/U with Dr. Stephens 02/20/18 Patient still having pain in the R trapezius/shoulder/upper R arm with movement. Reviewed neg MR of brain. MRI of c-spine shows some narrowing but no significant foraminal or canal stenosis. Dismiss home today with steroid burst, muscle relaxants, OP PT, ice/heat PRN, topical analgesics PRN, TENS unit. Hold Losartan given recent hyperkalemia and elevated creatinine. Can restart metformin. Encouraged gentle ROM exercises to decrease risk of frozen shoulder. Avoid OTC NSAIDs while on prednisone. Off work this week. F/U with Dr. Tesfaye this week - recommend rechecking BMP secondary to resolved IFRAH and Hyperkalemia. Restart losartan at Dr Tesfaye's discretion. See orders for details. Time spent with patient: discharge greater than 30 minutes Resuscitation Status: Full Code Discharge Plan - Discharge Disposition Discharge Date: 02/20/18 Disposition: Discharged Home, Self-Care *Condition: Stable Reason For Visit (Visit label in EMR): Persistant pain& weakness despite imp of potassium - Discharge Medications *Discharge Medications: New PredniSONE [Deltasone 20 mg] 40 mg PO WB #10 tab Tramadol [Ultram] 50 - 100 mg PO QID PRN #30 tab PRN Reason: Pain Metaxalone [Skelaxin] 800 mg PO TID PRN #20 tab PRN Reason: Pain/Spasm Trolamine Salicylate 10% Cream [Aspercreme] 1 applicatio TOP QID tube Continue Levothyroxine Sodium [Levoxyl] 100 mcg PO ACB #0 [place]-3 Fatty Acids/Fish Oil [Fish Oil 1,200 mg Softgel] 1 cap PO BID Digoxin 125 mcg PO DAILY Metformin XR [Glucophage Xr] 750 mg PO BID #0 Insulin Degludec *U100* [Tresiba Flextouch U-100 Pen] 110 mg SQ HS Zinc Gluconate [Zinc] 50 mg PO BID Discontinued Naproxen Sodium [Aleve] 220 mg PO BIDWM PRN PRN Reason: Pain Losartan [Cozaar] 100 mg PO DAILY - Discharge Packet/Instructions *Diet: 2000 KCAL ADA *Activity: As tolerated. Off work this week. *Pain Management/Treatment: Tramadol/skelaxin/Prednisone *Wound Care: N/A *Expected Signs/Symptoms: Improvement of pain and functional status. *Notify Physician if: Temp >100.2. Pain not controlled. *During Business Hours Contact: Dr Tesfaye *After Business Hours Contact: Call [facility] and have Dr Tesfaye contacted. *Pending Lab/Results: No Pending Lab - Referrals/Follow Up *Referrals/Follow Up: Calixto Tesfaye DO [Primary Care Provider] - 1 Week (Hospital follow up for Hypernatremia/Acute kidney injury. Recommend rechecking BMP for follow up. Cozaar on hold - restart as clinically indicated. ) - Patient Handouts Patient Handouts: Acute Neck Pain (ED) - Dismissal Complete Discharge Instructions are:: Complete Physician Narrative - Narrative Physician: Yaya Alfonso MD Attestation Narrative: Date: 02/20/18 Time: 1430 I have independently interviewed and examined patient prior to discharge. Chart reviewed. Case discussed with my PA. Above care plan developed with my supervision; agree with above. Still having neck/arm pain/spasm but decreasing. Some nausea. Breathing well. Lab showing improvement of creatinine and potassium. Lungs: clear bilaterally CV: regular AB: soft nt Plan: Medically stable for discharge to home, see orders for details.
[2018-02-20] MEDS: ORPHENADRINE SR 100 MG TABLET PO PRN (13:15)
== END 2018-02-20 16:40 | disposition home or self-care (01) | DRG 641 ==
LOC: ED 14:39 → MED 14:39
PROVIDERS: ADMIT Hospitalist; ATTEND Hospitalist